=== PATIENT | male | born 1975 | race Caucasian/White ===

== ENCOUNTER 2020-07-29 10:40 | Emergency (ER) | payer MEDICAID ==
[~2020-07-29] VITALS: Ht 177.8 cm; Wt 85.0 kg
[2020-07-29 12:02] VITALS: BP 122/78
== END 2020-07-29 12:10 | disposition home or self-care (01) ==
LOC: ER 10:40
DX: M25.562 Pain in left knee (principal); F91.8 Other conduct disorders
CPT/HCPCS: 99283

== ENCOUNTER 2020-07-30 11:20 | Emergency (ER) | payer SELFPAY ==
[~2020-07-30] VITALS: Ht 182.9 cm; Wt 82.0 kg
[2020-07-30 11:33] VITALS: BP 129/89
== END 2020-07-30 13:13 | disposition left against medical advice (07) ==
LOC: ER 11:20
DX: F41.9 Anxiety disorder, unspecified (principal); F15.10 Other stimulant abuse, uncomplicated
CPT/HCPCS: 36415; 80320; 93005; 99284; G0480

== ENCOUNTER 2021-12-29 16:35 | Emergency (ER) | payer MEDICAID, OTHER ==
[~2021-12-29] VITALS: Ht 172.7 cm; Wt 73.0 kg
[2021-12-29] MEDS ORDERED: SODIUM CHLORIDE 0.9% 1,000 ML IV ONE (17:00)
[2021-12-29 18:24] LABS: BASOPHILS % 0.9 % (0.0-2.0); EOSINOPHILS % 1.2 % (0.0-5.0); HEMOGLOBIN. 13.8 g/dL (14.0-18.0); LYMPHOCYTES % 15.7 % (20.0-50.0); MEAN CORPUSCULAR HEMOGLOBIN 34.4 pg (28.0-32.0); MEAN CORPUSCULAR VOLUME 99.8 fL (80.0-94.0); MEAN PLATELET VOLUME 7.9 fl (7.4-10.4); MONOCYTES % 9.1 % (2.0-8.0); NEUTROPHILS % 73.1 % (40.0-76.0); PLATELET 231 x1000/uL (130-400); RED CELL DISTRIBUTION WIDTH 13.3 % (11.6-14.6)
[2021-12-29 18:29] LABS: CHLORIDE 109 mEq/L (98-107)
[2021-12-29 18:56] LABS: ETHANOL BLOOD 403 mg/dL
[2021-12-29 20:40] VITALS: BP 108/68
== END 2021-12-29 20:58 | disposition home or self-care (01) ==
LOC: ER 16:35
DX: F10.129 Alcohol abuse with intoxication, unspecified (principal); Y90.8 Blood alcohol level of 240 mg/100 ml or more; I49.2 Junctional premature depolarization; R94.31 Abnormal electrocardiogram [ECG] [EKG]; D64.9 Anemia, unspecified; F15.10 Other stimulant abuse, uncomplicated
CPT/HCPCS: 36415; 80053; 80320; 85025; 93005; 96360; 99284; J7030; Z7610; G0480

== ENCOUNTER 2021-12-30 11:27 | Emergency (ER) | payer OTHER ==
[~2021-12-30] VITALS: Ht 170.2 cm; Wt 70.0 kg
[2021-12-30 11:32] VITALS: BP 130/72
[2021-12-30] MEDS ORDERED: TETANUS, DIPHTHERIA, PERTUSSIS VAC/PF 0.5ML (>10YR OLD) IM ONE (11:45)
[2021-12-30] MEDS ORDERED: KETOROLAC 15MG/ML VIAL IM ONE (11:45)
== END 2021-12-30 12:14 | disposition left against medical advice (07) ==
LOC: ER 11:34
DX: S50.812A Abrasion of left forearm, initial encounter (principal); S50.811A Abrasion of right forearm, initial encounter; F15.10 Other stimulant abuse, uncomplicated; X58.XXXA Exposure to other specified factors, initial encounter; Y93.51 Activity, roller skating (inline) and skateboarding; Y92.89 Other specified places as the place of occurrence of the external cause; Y99.8 Other external cause status
CPT/HCPCS: 99283; J1885; 90715

== ENCOUNTER 2022-01-17 12:48 | Emergency (ER) | payer OTHER ==
[~2022-01-17] VITALS: Ht 177.8 cm; Wt 82.0 kg
[2022-01-17 15:59] LABS: BASOPHILS % 0.8 % (0.0-2.0); EOSINOPHILS % 1.5 % (0.0-5.0); HEMATOCRIT. 36.1 % (42.0-52.0); HEMOGLOBIN. 12.6 g/dL (14.0-18.0); LYMPHOCYTES % 12.5 % (20.0-50.0); MEAN CORPUSCULAR HEMOGLOBIN 35.2 pg (28.0-32.0); MEAN CORPUSCULAR VOLUME 100.9 fL (80.0-94.0); MEAN PLATELET VOLUME 7.4 fl (7.4-10.4); MONOCYTES % 8.3 % (2.0-8.0); NEUTROPHILS % 76.9 % (40.0-76.0); PLATELET 267 x1000/uL (130-400); RED BLOOD CELL COUNT 3.58 mill/uL (4.7-6.1); RED CELL DISTRIBUTION WIDTH 13.5 % (11.6-14.6)
[2022-01-17 16:07] LABS: CLARITY URINE CLEAR (CLEAR); COLOR URINE YELLOW (YELLOW); KETONES URINE TRACE (NEGATIVE); LEUKOCYTE ESTERASE URINE NEGATIVE (NEGATIVE); NITRITE URINE NEGATIVE (NEGATIVE); OCCULT BLOOD URINE NEGATIVE (NEGATIVE); PROTEIN URINE NEGATIVE (NEGATIVE); SPECIFIC GRAVITY URINE 1.022 (1.005-1.030); UROBILINOGEN URINE 0.2 E.U./dL (0.2-1.0)
[2022-01-17 16:07] LABS: CHLORIDE 107 mEq/L (98-107)
[2022-01-17 17:21] VITALS: BP 110/60
== END 2022-01-17 17:26 | disposition home or self-care (01) ==
LOC: ER 12:48
DX: F10.10 Alcohol abuse, uncomplicated (principal); Y90.9 Presence of alcohol in blood, level not specified; R07.89 Other chest pain; F15.90 Other stimulant use, unspecified, uncomplicated; F12.90 Cannabis use, unspecified, uncomplicated
CPT/HCPCS: 36415; 80053; 81003; 84484; 85025; 99283

== ENCOUNTER 2022-01-24 19:38 | Emergency (ER) | payer OTHER ==
[~2022-01-24] VITALS: Ht 180.3 cm; Wt 84.0 kg
[2022-01-24] MEDS ORDERED: SODIUM CHLORIDE 0.9% 1,000 ML IV ONE (20:00)
[2022-01-24 20:10] VITALS: BP 108/66
[2022-01-24 20:35] LABS: BASOPHILS % 1.1 % (0.0-2.0); EOSINOPHILS % 0.6 % (0.0-5.0); HEMATOCRIT. 39.4 % (42.0-52.0); HEMOGLOBIN. 13.5 g/dL (14.0-18.0); LYMPHOCYTES % 11.9 % (20.0-50.0); MEAN CORPUSCULAR HEMOGLOBIN 34.1 pg (28.0-32.0); MEAN CORPUSCULAR VOLUME 99.9 fL (80.0-94.0); MEAN PLATELET VOLUME 7.6 fl (7.4-10.4); NEUTROPHILS % 72.4 % (40.0-76.0); PLATELET 224 x1000/uL (130-400); RED BLOOD CELL COUNT 3.95 mill/uL (4.7-6.1); RED CELL DISTRIBUTION WIDTH 13.1 % (11.6-14.6)
[2022-01-24 20:42] LABS: CHLORIDE 97 mEq/L (98-107)
[2022-01-24 21:01] LABS: *AMPHETAMINES SCREEN URINE NEGATIVE (NEGATIVE); *BARBITURATES SCREEN URINE NEGATIVE (NEGATIVE); *BENZODIAZEPINES SCREEN URINE NEGATIVE (NEGATIVE); *COCAINE SCREEN URINE NEGATIVE (NEGATIVE); METHADONE URINE SCREEN NEGATIVE (NEGATIVE); OPIATES URINE SCREEN PRESUMTIVE POSITIVE (NEGATIVE)
[2022-01-24 21:02] LABS: ETHANOL BLOOD 329 mg/dL
[2022-01-24 21:02] LABS: CANNABINOID URINE SCREEN NEGATIVE (NEGATIVE); PHENCYCLIDINE URINE SCREEN NEGATIVE (NEGATIVE)
== END 2022-01-24 23:19 | disposition home or self-care (01) ==
LOC: ER 19:38
DX: F10.129 Alcohol abuse with intoxication, unspecified (principal); Y90.8 Blood alcohol level of 240 mg/100 ml or more; G89.29 Other chronic pain; M54.9 Dorsalgia, unspecified; F15.90 Other stimulant use, unspecified, uncomplicated; F14.90 Cocaine use, unspecified, uncomplicated; F12.90 Cannabis use, unspecified, uncomplicated; E87.6 Hypokalemia; R79.89 Other specified abnormal findings of blood chemistry; D64.9 Anemia, unspecified; Z71.41 Alcohol abuse counseling and surveillance of alcoholic
CPT/HCPCS: 36415; 80053; 80305; 80320; 85025; 96360; 99283; J7030; G0480

== ENCOUNTER 2022-03-17 15:25 | Emergency (ER) | payer MEDICAID, OTHER ==
[~2022-03-17] VITALS: Ht 182.9 cm; Wt 71.0 kg
[2022-03-17] MEDS ORDERED: TETANUS, DIPHTHERIA, PERTUSSIS VAC/PF 0.5ML (>10YR OLD) IM ONE ×2 (16:15→19:38)
[2022-03-17 16:29] LABS: BASOPHILS % 1.2 % (0.0-2.0); EOSINOPHILS % 1.2 % (0.0-5.0); HEMATOCRIT. 40.5 % (42.0-52.0); LYMPHOCYTES % 10.9 % (20.0-50.0); MEAN CORPUSCULAR HEMOGLOBIN 33.7 pg (28.0-32.0); MEAN CORPUSCULAR VOLUME 97.7 fL (80.0-94.0); MEAN PLATELET VOLUME 7.6 fl (7.4-10.4); MONOCYTES % 7.5 % (2.0-8.0); NEUTROPHILS % 79.2 % (40.0-76.0); PLATELET 288 x1000/uL (130-400); RED BLOOD CELL COUNT 4.15 mill/uL (4.7-6.1); RED CELL DISTRIBUTION WIDTH 12.7 % (11.6-14.6)
[2022-03-17 16:39] LABS: CHLORIDE 100 mEq/L (98-107)
[2022-03-17 16:59] LABS: ETHANOL BLOOD 379 mg/dL
[2022-03-17] MEDS ORDERED: BUPIVACAINE HCL 0.5% (5MG/ML) 50ML INFIL ONE (17:15)
[2022-03-17] MEDS ORDERED: LIDOCAINE HCL/EPINEPHRINE 1%-EPI 1:100,000 30 ML VIAL INFIL ONE (17:15)
[2022-03-17 20:25] VITALS: BP 130/83
== END 2022-03-17 20:30 | disposition home or self-care (01) ==
LOC: ER 15:25
DX: S01.111A Laceration without foreign body of right eyelid and periocular area, initial encounter (principal); I10 Essential (primary) hypertension; F10.129 Alcohol abuse with intoxication, unspecified; W05.2XXA Fall from non-moving motorized mobility scooter, initial encounter; Y90.8 Blood alcohol level of 240 mg/100 ml or more; Y93.89 Activity, other specified; Y92.89 Other specified places as the place of occurrence of the external cause; Y99.8 Other external cause status
CPT/HCPCS: 12013; 36415; 70450; 72125; 80048; 80320; 85025; 99284; J3490; 90715; G0480

== ENCOUNTER 2022-11-26 09:24 | Emergency (ER) | payer MEDICAID, OTHER ==
[~2022-11-26] VITALS: Ht 175.3 cm; Wt 68.0 kg
[~2022-11-26 09:24] MED LIST: NALO4SPR BOTHNSTRLS
[2022-11-26 09:32] VITALS: BP 141/90
[2022-11-26] MEDS ORDERED: ACETAMINOPHEN 325MG TABLET PO ONE (10:00)
[2022-11-26] MEDS: LIDOCAINE HCL 1% 20ML VIAL (Pyxis) INJ INFIL NR ×2 (11:36→12:04)
[2022-11-26] MEDS ORDERED: IBUP-2028 MT (11:51)
== END 2022-11-26 12:36 | disposition home or self-care (01) ==
LOC: ER 09:24
DX: S51.811A Laceration without foreign body of right forearm, initial encounter (principal); S00.83XA Contusion of other part of head, initial encounter; M79.641 Pain in right hand; M25.571 Pain in right ankle and joints of right foot; R03.0 Elevated blood-pressure reading, without diagnosis of hypertension; Y07.499 Other family member, perpetrator of maltreatment and neglect; Y00.XXXA Assault by blunt object, initial encounter; Y93.89 Activity, other specified; Y92.89 Other specified places as the place of occurrence of the external cause
CPT/HCPCS: 12001; 73090; 73120; 73610; 99284